=== PATIENT | male | born 1930 | race Caucasian/White ===

== ENCOUNTER 2016-08-17 17:26 | Emergency (ER) | payer MEDICARE, BC ==
--- NOTE | ~2016-08-17 | CR72 ---
[facility] A Service of [facility] RADIOLOGY TEXT RESULTS PATIENT: GUCCI WALTON LOCATION: [facility] : 30 UNIT #: [id number] AGE: [address]: Kavitha Richardson MD SEX: M ORDER DR: [id number] [place], [place] [address] [id number] E MR#: [id number] Acc #: [id number] NAME: GUCCI WALTON : 1930 SEX: M STUDY DATE/TIME: 08/17/2016 17:27 UNIT: [facility] ROOM: STUDY DESCRIPTION: CR Chest Single View Portable Attending Physician: Kavitha Richardson M.D. Ordering Physician: Kavitha Richardson M.D. Primary Care Physician: Yovana Batista A.P.R.N. MEDICAL IMAGING REPORT This report is preliminary unless electronic signature is present EXAM Portable chest. HISTORY Chest pain and short of breath over the past 4 days. COMPARISON STUDIES 05/24/2015 TECHNIQUE A single AP view of the chest was obtained. FINDINGS The heart and mediastinum are stable. Both lungs are clear, with normal vascular markings. No pleural fluid is seen. IMPRESSION Postop open heart. No active pulmonary disease. No evidence of congestive heart failure. Dictated by... Jose Powers M.D. THIS IS AN ELECTRONICALLY VERIFIED REPORT Jose Powers M.D. at 08/19/2016 11:02 AM CHRISTIAN/viktoria TD: 08/18/2016 11:08 JOB #: [id number] [facility] A Service of [facility] RADIOLOGY TEXT RESULTS PATIENT: GUCCI WALTON LOCATION: [facility] : 30 UNIT #: [id number] AGE: [address]: Kavitha Richardson MD SEX: M ORDER DR: MEDICAL IMAGING REPORT Page 1 of 1 COPY
--- NOTE | ~2016-08-17 | EKG ---
PATIENT: GUCCI WALTON UNIT #: [id number] Ventricular Rate: 70 BPM Atrial Rate: 312 BPM QRS Duration: 176 ms Q-T Interval: 438 ms QTC Calculation(Bezet): 473 ms Calculated R Austell: -74 degrees Calculated T Austell: 61 degrees Diagnosis Line: Suspect unspecified pacemaker failure Diagnosis Line: Ventricular-paced rhythm Diagnosis Line: Abnormal ECG Diagnosis Line: When compared with ECG of 16-APR-2015 19:54, Diagnosis Line: No significant change was found Diagnosis Line: Confirmed by GILL WHEATLEY MD ([id number]) on Diagnosis Line: 08/18/2016 8:02:26 AM INTERPRETING MD: CORRY EGAN
[2016-08-17 17:21] LABS: BASOPHIL% 0.4 % (0-2.5); EOSINOPHIL% 0.9 % (0.0-7.0); HEMATOCRIT 31.8 % (38.0-50.0); HEMOGLOBIN 10.5 gm/dL (13.0-16.0); LYMPHOCYTE# 0.9 X10e3 (1.0-3.5); LYMPHOCYTE% 18.9 % (17.0-45.0); MEAN CELL VOLUME 90.7 FL (83-96); MEAN CORPUSCULAR HEMOGLOBIN 29.9 PG (28-34); MEAN PLATELET VOLUME 7.8 FL (6.5-11.5); MONOCYTE# 0.5 X10e3 (0-1.0); MONOCYTE% 9.8 % (3.0-12.0); NEUTROPHIL# 3.4 X10e3 (1.5-7.1); PLATELET COUNT 166 X10e3 (140-420); RED BLOOD COUNT 3.51 X10e (3.90-5.60); RED CELL DISTRIBUTION WIDTH 14.8 % (11.0-15.5); WHITE BLOOD COUNT 4.8 X10e3 (4.0-10.5)
[2016-08-17 17:23] LABS: DIFF IND NO
[~2016-08-17 17:26] MED LIST: ALDACTONE PO; ALDACTONE25 MG PO; ALPRAZOLAM PO; ALPRAZOLAM0.25 MG PO; ASPIRIN PO; ASPIRIN81 M2 PO; ASPIRIN81 MG PO; CENTRUM SILVER PO; CERTAGEN PO; CIPRO PO; COREG12.5 MG PO; COUMADIN PO; COUMADIN3 MG PO; ENSURE COMPLET237 ML PO; FAMOTIDINE PO; FERROUS GLUCON324 MG PO; FISH OIL 1,0001 CA2 PO; FUROSEMIDE40 MG PO; KCL PO; KENALOG IN ORABA5 GM TOP; KROGER PHARMACY; LASIX PO; LISINOPRIL PO; LISINOPRIL10 MG PO; MACROBID100 MG PO; METAMUCIL; METOPROLOL SUC100 MG PO; METOPROLOL SUCC50 MG PO; MIRALAX17 GM PO; NIASPAN PO; OMEPRAZOLE40 M1 PO; OMEPRAZOLE40 MG; PHENERGAN W/CO120 ML PO; PROTONIX PO; TOPROL XL PO; TRILIPIX135 MG PO; WARFARIN PO; WARFARIN SODIUM10 MG PO; ZITHROMAX PO; ZITHROMAX1 G/PKT PO; ZOCOR PO; ZOCOR80 MG PO; [UNRECOGNIZED DRUG - OTHER] PO
[2016-08-17 17:34] LABS: POC - TROPONIN <0.05 ng/mL (<=0.05)
[2016-08-17 17:35] LABS: INR 3.2; PROTHROMBIN TIME (PATIENT) 35.2 SECONDS (9.6-11.5)
[2016-08-17 17:48] LABS: ALBUMIN SERUM 3.6 g/dL (3.5-5.0); ALKALINE PHOSPHATASE 48 U/L (32-92); ALT (SGPT) 12 U/L (10-40); AMYLASE 23 U/L (0-46); AST (SGOT) 18 U/L (10-42); BILIRUBIN, DIRECT 0.2 mg/dL (0.0-0.2); BILIRUBIN,INDIRECT 0.5 mg/dL (0.0-0.9); BILIRUBIN,TOTAL 0.7 mg/dL (0.2-2.0); BLOOD UREA NITROGEN 20 mg/dL (9-23); BUN/CREATININE RATIO 18.18; CARBON DIOXIDE 25 mmol/L (22-31); CHLORIDE 93 mmol/L (100-111); CREATININE SERUM 1.1 mg/dL (0.6-1.4); GLOM FILT RATE Estimated ABOVE60 mL/min (>60); GLUCOSE FASTING 85 mg/dL (70-110); LIPASE 18 U/L (22-51); POTASSIUM 4.4 mmol/L (3.5-5.1); PROTEIN TOTAL SERUM 6.2 g/dL (6.0-8.3); SODIUM 127 mmol/L (135-145)
[2016-08-17 19:21] LABS: URINE SOURCE CLEAN CATCH
[2016-08-17 19:29] LABS: URINE APPEARANCE CLEAR; URINE BILIRUBIN NEG (NEG); URINE BLOOD 1+ (NEG); URINE COLOR YELLOW; URINE GLUCOSE NEG (NEG); URINE KETONE NEG (NEG); URINE LEUKOCYTE ESTERASE NEG (NEG); URINE NITRATE NEG (NEG); URINE PH 6.5 (5-8); URINE PROTEIN 1+ (NEG); URINE SPECIFIC GRAVITY 1.019 (1.003-1.035)
[2016-08-17 19:35] LABS: U HYALINE CASTS AUWI 0-2 /[LPF]; URINE BACTERIA AUWI NEG (NEGATIVE); URINE SQUAMOUS EPITHELIAL CELL NONE SEEN /[HPF]; UWBCS1 AUWI 0-2 (0-5)
[2016-08-17 19:36] LABS: CULTURE INDICATED? NO
[2016-08-17 20:04] LABS: POC - CKMB <1.0 ng/mL (0.0-7.9); POC - TROPONIN <0.05 ng/mL (<=0.05)
== END 2016-08-17 20:00 | disposition home or self-care (01) ==
LOC: CED 17:26
PROVIDERS: Emergency Medicine
DX: R10.9 Unspecified abdominal pain (principal); E78.5 Hyperlipidemia, unspecified; I10 Essential (primary) hypertension; Z95.1 Presence of aortocoronary bypass graft; Z88.2 Allergy status to sulfonamides; Z88.5 Allergy status to narcotic agent; Z88.8 Allergy status to other drugs, medicaments and biological substances
CPT/HCPCS: 36415; 71010; 80048; 80076; 81003; 82150; 82553; 83690; 84484; 85025; 85610; 93005; 99283; 99284

== ENCOUNTER 2016-09-24 20:48 | Emergency (ER) | payer MEDICARE, BC ==
--- NOTE | ~2016-09-24 | CR72 ---
[facility] A Service of [facility] RADIOLOGY TEXT RESULTS PATIENT: GUCCI WALTON LOCATION: [facility] : 30 UNIT #: [id number] AGE: [address]: Glenroy Mccalin MD SEX: M ORDER DR: [id number] [facility] [address] [place], [place] [address] [id number] E MR#: [id number] Acc #: [id number] NAME: GUCCI WALTON : 1930 SEX: M STUDY DATE/TIME: 09/24/2016 21:19 UNIT: [facility] ROOM: STUDY DESCRIPTION: CR Chest Single View Portable Attending Physician: Glenroy Mcclain M.D. Ordering Physician: Glenroy Mcclain M.D. Primary Care Physician: Yovana Batista A.P.R.N. MEDICAL IMAGING REPORT This report is preliminary unless electronic signature is present EXAM Portable chest x-ray, 09/24/2016 HISTORY Dizziness. Short of air. Began today. FINDINGS AP radiographs of the chest are presented. Comparison 08/17/2016. Cardiac pacemaker unchanged. Stable mild cardiac enlargement. Status post median sternotomy CABG and cardiac valve repair. The lungs are well inflated. Ill-defined increased peribronchial markings in the bilateral guv-[id number] lung zones with some patchy and linear densities in these regions as well, left greater than right. Underlying pulmonary vasculature is within normal limits. There is no compelling evidence of edema. I would favor that the findings represent mild to moderate bronchitis/pneumonitis. Short-interval followup to confirm resolution is recommended. There is no dense airspace disease. Trace left pleural effusion or pleural thickening. Appearance unchanged. No pneumothorax. No suspicious nodule. Densely calcified granuloma right upper lobe unchanged. Dictated by... Dale Jamil M.D. THIS IS AN ELECTRONICALLY VERIFIED REPORT Dale Jamil M.D. at 09/25/2016 9:31 PM Shirin TD: 09/24/2016 23:24 JOB #: [id number] [facility] A Service of [facility] RADIOLOGY TEXT RESULTS PATIENT: GUCCI WALTON LOCATION: [facility] #: [id number] : 30 UNIT #: [id number] AGE: [address]: Glenroy Mcclain MD SEX: M ORDER DR: MEDICAL IMAGING REPORT Page 1 of 1 COPY
--- NOTE | ~2016-09-24 | EKG ---
PATIENT: GUCCI WALTON UNIT #: [id number] Ventricular Rate: 70 BPM Atrial Rate: 73 BPM QRS Duration: 174 ms Q-T Interval: 450 ms QTC Calculation(Bezet): 486 ms Calculated R Hollis: -69 degrees Calculated T Hollis: 57 degrees Diagnosis Line: Ventricular-paced rhythm Diagnosis Line: Abnormal ECG Diagnosis Line: When compared with ECG of 17-AUG-2016 17:00, Diagnosis Line: No significant change was found Diagnosis Line: Confirmed by GERI CALI MD ([id number]) on Diagnosis Line: 09/26/2016 10:55:04 PM INTERPRETING MD: NICOLE
--- NOTE | ~2016-09-24 | CT71 ---
[facility] A Service of [facility] RADIOLOGY TEXT RESULTS PATIENT: GUCCI WALTON LOCATION: [facility] : 30 UNIT #: [id number] AGE: [address]: Glenroy Mcclain MD SEX: M ORDER DR: [id number] [facility] [address] [place], [place] [address] [id number] E MR#: [id number] Acc #: [id number] NAME: GUCCI WALTON : 1930 SEX: M STUDY DATE/TIME: 09/24/2016 21:51 UNIT: [facility] ROOM: STUDY DESCRIPTION: CT Head Wo Contrast Attending Physician: Glenroy Mcclain M.D. Ordering Physician: Glenroy Mcclain M.D. Primary Care Physician: Yovana Batista A.P.R.N. MEDICAL IMAGING REPORT This report is preliminary unless electronic signature is present EXAM Head CT without HISTORY Dizziness today, new onset. History of hypertension, congestive heart failure, and kidney stones. TECHNIQUE Routine noncontrast head CT is reviewed. This CT exam was performed with one or more of the following radiation dose reduction techniques: automatic exposure control, adjustment of mA and/or kV according to patient size, and iterative reconstruction. COMPARISON STUDIES 03/26/2015. FINDINGS There is a displaced calvarial fracture. Mild paranasal sinus mucosal thickening. Large mucous retention cyst probably within the right maxillary sinus. Smaller mucous retention cysts or polyps in the left maxillary antrum. The mastoid air cells are clear. Prominent atherosclerotic vascular calcifications at the base of the brain. There is generalized atrophy. There is no extraaxial fluid collection. There is no evidence for acute intracranial hemorrhage. Mild periventricular white matter low attenuation is nonspecific but probably due to small vessel disease. No intracranial mass effect. The basilar cisterns are patent. Nothing at this time to suggest an acute cortical infarct but if there is clinical concern for acute CVA, follow-up imaging is recommended, preferably with MRI if the patient is a candidate. Patient has had cataract surgery bilaterally. [facility] A Service of [facility] RADIOLOGY TEXT RESULTS PATIENT: GUCCI WALTON [id number] : 30 UNIT #: [id number] AGE: [address]: Glenroy Mcclain MD SEX: M ORDER DR: IMPRESSION 1. No acute intracranial abnormality is appreciated but if there is clinical concern for acute CVA, follow-up imaging is recommended, preferably with MRI if the patient is a candidate. 2. Atrophy and probable mild sequela of small vessel disease. Extensive vascular calcifications base of the brain. Mild paranasal sinus disease but no air-fluid level in the visualized paranasal sinuses. Dictated by... Charleen Huntley M.D. THIS IS AN ELECTRONICALLY VERIFIED REPORT Charleen Huntley M.D. at 09/25/2016 10:22 AM NURYS/kike TD: 09/24/2016 23:27 JOB #: [id number] MEDICAL IMAGING REPORT Page 1 of 1 COPY
[2016-09-24 21:23] LABS: BASOPHIL% 0.6 % (0-2.5); DIFF IND NO; EOSINOPHIL# 0.1 X10e3 (0-0.7); EOSINOPHIL% 2.5 % (0.0-7.0); LYMPHOCYTE# 0.9 X10e3 (1.0-3.5); LYMPHOCYTE% 17.7 % (17.0-45.0); MEAN CELL VOLUME 92.4 FL (83-96); MEAN CORPUSCULAR HEMOGLOBIN 30.8 PG (28-34); MEAN CORPUSCULAR HGB CONC 33.4 g/dL (30-36); MEAN PLATELET VOLUME 7.7 FL (6.5-11.5); MONOCYTE# 0.5 X10e3 (0-1.0); MONOCYTE% 10.8 % (3.0-12.0); NEUTROPHIL# 3.5 X10e3 (1.5-7.1); NEUTROPHIL% 68.4 % (40-75); PLATELET COUNT 163 X10e3 (140-420); RED BLOOD COUNT 2.92 X10e (3.90-5.60); RED CELL DISTRIBUTION WIDTH 14.2 % (11.0-15.5); WHITE BLOOD COUNT 5.1 X10e3 (4.0-10.5)
[2016-09-24 21:30] LABS: INR 2.4; PROTHROMBIN TIME (PATIENT) 26.2 SECONDS (9.6-11.5)
[2016-09-24 21:39] LABS: BUN/CREATININE RATIO 21.81; CALCIUM SERUM 8.7 mg/dL (8.4-10.2); CREATININE SERUM 1.1 mg/dL (0.6-1.4); GLOM FILT RATE Estimated 60.5 mL/min (>60); POTASSIUM 4.6 mmol/L (3.5-5.1)
[2016-09-24 21:55] LABS: URINE SOURCE CLEAN CATCH
[2016-09-24 22:02] LABS: URINE BILIRUBIN NEG (NEG); URINE BLOOD TRACE (NEG); URINE COLOR YELLOW; URINE GLUCOSE NEG (NEG); URINE KETONE NEG (NEG); URINE LEUKOCYTE ESTERASE NEG (NEG); URINE NITRATE NEG (NEG); URINE PROTEIN NEG (NEG); URINE SPECIFIC GRAVITY 1.018 (1.003-1.035)
[2016-09-24 22:05] LABS: URINE BACTERIA AUWI NEG (NEGATIVE); URINE SQUAMOUS EPITHELIAL CELL NONE SEEN /[HPF]; UWBCS1 AUWI 0-2 (0-5)
[2016-09-24 22:07] LABS: CULTURE INDICATED? NO; URINE APPEARANCE CLEAR
== END 2016-09-24 23:40 | disposition home or self-care (01) ==
LOC: CED 20:48
PROVIDERS: Emergency Medicine
DX: R42 Dizziness and giddiness (principal); I10 Essential (primary) hypertension; Z95.0 Presence of cardiac pacemaker; Z79.01 Long term (current) use of anticoagulants; Z79.82 Long term (current) use of aspirin; Z79.899 Other long term (current) drug therapy; Z88.2 Allergy status to sulfonamides; Z88.5 Allergy status to narcotic agent; Z88.8 Allergy status to other drugs, medicaments and biological substances
CPT/HCPCS: 36415; 70450; 71010; 80048; 81003; 82947; 85025; 85610; 93005; 99284

== ENCOUNTER 2017-01-04 15:13 | Emergency (ER) | payer MEDICARE, BC ==
[~2017-01-04] VITALS: Ht 182.9 cm; Wt 74.8 kg
[2017-01-04] MEDS ORDERED: COUMADIN3 MG PO (15:46)
[2017-01-04] MEDS ORDERED: COREG6.25 M1 PO (15:47)
[2017-01-04] MEDS ORDERED: HYDROXYZINE HCL25 M1 PO (15:54)
[2017-01-04] MEDS ORDERED: SYNTHROID25 MCG PO (15:54)
== END 2017-01-04 15:50 | disposition home or self-care (01) ==
LOC: CFTX 15:13 → CED 15:13 → CFTX 15:47
DX: J02.9 Acute pharyngitis, unspecified (principal); I11.0 Hypertensive heart disease with heart failure; I50.9 Heart failure, unspecified; Z88.2 Allergy status to sulfonamides; Z88.5 Allergy status to narcotic agent; Z79.899 Other long term (current) drug therapy; Z79.82 Long term (current) use of aspirin
CPT/HCPCS: 87651; 99283

== ENCOUNTER 2017-01-17 12:02 | Inpatient (IN) | payer MEDICARE, BC ==
[~2017-01-17] VITALS: Ht 185.4 cm; Wt 71.6 kg
--- NOTE | ~2017-01-17 | CT114 ---
[facility] A Service of [facility] RADIOLOGY TEXT RESULTS PATIENT: GUCCI WALTON LOCATION: [facility] 551-01 : 30 UNIT #: [id number] AGE: [address]: Elizabeth Ovalles MD SEX: M ORDER DR: [id number] [facility] [address] [place], [place] [address] [id number] I MR#: [id number] Acc #: [id number] NAME: GUCCI WALTON : 1930 SEX: M STUDY DATE/TIME: 01/18/2017 8:21 UNIT: [facility] ROOM: [facility] STUDY DESCRIPTION: CT Soft Tissue Neck W Cont Attending Physician: Elizabeth Ovalles M.D. Ordering Physician: Jean Londono M.D. Primary Care Physician: Patrizia King MEDICAL IMAGING REPORT This report is preliminary unless electronic signature is present EXAM Soft tissue neck CT with contrast, 01/18/2017 PROCEDURE Axial contrast enhanced soft tissue neck CT with multiplanar reformats. This CT exam was performed with one or more of the following radiation dose reduction techniques: automatic exposure control, adjustment of mA and/or kV according to patient size, and iterative reconstruction. HISTORY Short of air and sore throat for 2 weeks. FINDINGS There is no cervical soft tissue mass, suspicious adenopathy, inflammatory change or abnormal fluid collection. The study is motion degraded. There is plaque at the carotid bifurcations without compelling evidence of substantial stenosis but no estimate of stenosis by NASCET criteria can be made from this exam. The upper mediastinum is unremarkable. The lung apices are normal. There is spinal degenerative change but no acute bony abnormality. IMPRESSION 1. No acute abnormality. No mass or inflammatory change or abnormal fluid collection. No suspicious adenopathy. There is spinal degenerative change but no acute bony abnormality. 2. There is plaque at the carotid bifurcations, without gross evidence of substantial stenosis but the study is not designed for identification of carotid stenosis. No estimate of stenosis by NASCET criteria can be made. Dictated by... [facility] A Service [facility] RADIOLOGY TEXT RESULTS PATIENT: GUCCI WALTON LOCATION: [facility] : 30 UNIT #: [id number] AGE: [address]: Elizabeth Ovalles MD SEX: M ORDER DR: Cuba Shi M.D. THIS IS AN ELECTRONICALLY VERIFIED REPORT Cuba Shi M.D. at 01/22/2017 5:02 PM MARCELL/maida TD: 01/18/2017 12:20 JOB #: [id number] MEDICAL IMAGING REPORT Page 1 of 1 COPY
--- NOTE | ~2017-01-17 | CO ---
Unit #: [id number] #: [id number] Patient: GUCCI WALTON [id number] [place], [place] [address] [id number] I MR#: [id number] NAME: GUCCI WALTON ROOM: 551 Age: 86 Sex: M Admission Date: 01/17/2017 : 1930 Attending Physician: Elizabeth Ovalles M.D. Primary Care Physician: Patrizia King Consultation Date: 01/17/2017 CONSULTATION REPORT REASON FOR CONSULTATION Hyponatremia. HISTORY OF PRESENT ILLNESS Mr. Ann is an 86-year-old elderly male with failure to thrive at home who came in complaining of continuous burning in his throat and also burning "on his insides." The patient has been evaluated by ENT, Dr. Ann for the sore throat without any clear etiology. He mentioned that he did drop a scope and did see some redness, but not much else. There is apparently a scan of his neck scheduled for this coming week. He does have some family present but states that the patient lives on his own and has not been doing well for some time. He has been having some trouble with weakness and walking. They are unsure about his p.o. intake. He has lost about 20 pounds over the past six months or so. Upon further questioning, he denies any vomiting or diarrhea to me. No gross hematuria. No chest discomfort or shortness of breath. No swelling problems. No rashes or itching. He does not take any NSAIDs that I am aware of. PAST MEDICAL HISTORY Significant for hypertension; hyperlipidemia; coronary artery disease, followed by Cardiology; valvular heart disease, status post valve replacement with Coumadin use; congestive heart failure, unknown type. PAST SURGICAL HISTORY He has had valve replacement, hernia repair, cholecystectomy, EGD, and either an AICD or pacer is not clear. MEDICATIONS Home medications according to the ER sheet are as follows: Clindamycin, hemorrhoid cream, B12, meclizine, dicyclomine, amitriptyline, magnesium oxide, riboflavin, carvedilol, simvastatin, omeprazole, lisinopril, MiraLAX, aspirin, warfarin, hydroxyzine, levothyroxine, ferrous sulfate, and Ensure. ALLERGIES He has coded allergies to sulfa, morphine, and epinephrine. FAMILY HISTORY Significant for heart disease. No family history of kidney problem. SOCIAL HISTORY The patient does live alone, but he does have some extended family in the ER that looked in on him. He smoked many years ago. No alcohol or drug Unit #: [id number] #: [id number] Patient: GUCCI WALTON. REVIEW OF SYSTEMS A complete 12-point review of systems was completed with the above findings. In addition, he has not complained of any headache or dizziness. No nosebleeds. No earache. No hemoptysis. No bright red blood per rectum or melena. No flank pain. No fevers. No chills. No night sweats or hot flashes. No intolerance to heat or cold. Again, he has had weight loss. No joint pain or swelling. Unless otherwise indicated, the review of systems was negative. PHYSICAL EXAMINATION VITAL SIGNS: The patient is afebrile. Pulse 77, respiratory rate 16, and blood pressure 166/74. GENERAL: This is a pleasant 86-year-old white male, who is alert and in no acute distress. HEENT: Head is atraumatic and normocephalic. Eyes show pink conjunctivae with no scleral icterus. No nasal drainage or nosebleed. Oropharynx is moist. No thrush. NECK: Shows no rigidity. HEART: Paced and regular with murmur present. No gallop or rub appreciated. LUNGS: Slightly diminished with no wheezing, no rhonchi. Breathing is nonlabored. ABDOMEN: Soft with old surgical scars present. There is a ventral hernia present. Bowel sounds are present. EXTREMITIES: No lower extremity cyanosis or edema. SKIN: Dry with no rashes. MUSCULOSKELETAL: No CVA tenderness to palpation. No joint effusions noted. NEUROLOGICAL: Cranial nerves are grossly intact with generalized weakness noted. PSYCHIATRIC: Mood and affect appear normal. DIAGNOSTIC STUDIES LABORATORY RESULTS: Urine osmolality was 208. Urinalysis; specific gravity was 1.007, trace protein, 1+ blood, and 10 to 25 red blood cells per high-powered field with no bacteria. TSH was normal at 2.14. Chest x-ray showed nothing acute. BNP was 107. Admission sodium 122, potassium 4.2, chloride 89, bicarb 27, glucose 116, BUN 13, creatinine 0.9. Rest of the CMP was unremarkable. INR 1.7. CBC; white count 5, hemoglobin 10.5, platelet count normal. Review of old labs showed that he was discharged back in 12/2014 with a sodium level of 134 after presenting at that time with a sodium of 117, improved with fluids per the discharge summary. Labs intervening between then and now do show chronic readings between 127 and 130 over the last few years. Uric acid level in 12/2014 was normal at 5.8. Serum osmolality at that time was 247. Again, thyroid function tests have been normal. Previous urine osmolalities in 2015 were 222 and 316 respectively with a urine sodium of 65. ASSESSMENT AND PLAN 1. Hyponatremia. Workup has been ordered by Dr. Galloway. I certainly have to be concerned with his questionable p.o. status with living alone and with his sore throat issue. He improved with fluids previously and saline has been ordered. I do note that he is on amitriptyline at home, which can certainly cause hyponatremia and this will need to be discontinued. His thyroid function tests are normal. Rest of his workup has been ordered by the by Dr. Galloway. Certainly with his low specific Unit #: [id number] #: [id number] Patient: ISABELLE,GUCCI gravity on his urine, he does appear to have the ability to dilute his urine, so he should correct as he did previously. With his sore throat and recurrent hyponatremia, I will go ahead and do scans of his neck, chest, and abdomen for completeness sake especially considering his recent weight loss. 2. Hypertension. Home medications will be renewed. 3. Microscopic hematuria. This is occurring in the setting of weight loss. We will check a urine culture as well as CT scan of his abdomen and pelvis. I will ask Urology to see. 4. Sore throat. He apparently had a CT scan that was supposed to be done this coming week and we will go in order here. ENT had been following. 5. Valvular heart disease with replacement on Coumadin. 6. History of pacer versus automatic implantable cardioverter-defibrillator, looks stable cardiovascular grimm. 7. 20 plus pound weight loss with scans order. I would like to thank Dr. Galloway for this consultation and the opportunity to participate in evaluation and care of Mr. Ann. Dictated by... Kaleb Ambrosio Jr., M.D. JOLIE/giuseppe TD: 01/18/2017 14:15 JOB #: [id number] CONSULTATION REPORT Page 1 of 1 X Kaleb Ambrosio MD CONSULTATION REPORT
--- NOTE | ~2017-01-17 | CT55 ---
[facility] A Service of [facility] RADIOLOGY TEXT RESULTS PATIENT: SD WALTON LOCATION: [facility] 55- : 30 UNIT #: [id number] AGE: [address]: Elizabeth Ovalles MD SEX: M ORDER DR: [id number] [facility] [address] [place], [place] [address] [id number] I MR#: [id number] Acc #: [id number] NAME: SD WALTON : 1930 SEX: M STUDY DATE/TIME: 01/18/2017 8:21 UNIT: [facility] ROOM: [facility] STUDY DESCRIPTION: CT Chest W Con Attending Physician: Elizabeth Ovalles M.D. Ordering Physician: Jean Londono M.D. Primary Care Physician: Patrizia King MEDICAL IMAGING REPORT This report is preliminary unless electronic signature is present EXAM CT scan chest with contrast INDICATION Sore throat, shortness of air and chest pain, weight loss and hematuria for 2 weeks. COMPARISON None TECHNIQUE Axial 3.0 mm images were obtained through the chest without IV contrast. This CT exam was performed with one or more of the following radiation dose reduction techniques: automatic exposure control, adjustment of mA and/or kV according to patient size, and iterative reconstruction. FINDINGS There is a calcified granuloma in the right upper lobe. There is minimal right greater left basilar atelectasis. The thyroid gland is normal. A pacemaker is present. There aorta is normal in size. There is no mediastinal or hilar adenopathy. The bones show sternotomy wires present. IMPRESSION 1. Minimal right greater than left basilar atelectasis. 2. No adenopathy or infiltrate is identified. 3. There is a pacemaker and sternotomy wires present. Dictated by... Sd Encinas M.D. THIS IS AN ELECTRONICALLY VERIFIED REPORT Sd Encinas M.D. at 01/18/2017 12:13 PM [facility] A Service [facility] RADIOLOGY TEXT RESULTS PATIENT: SD WALTON LOCATION: [facility] : 30 UNIT #: [id number] AGE: [address]: Elizabeth Ovalles MD SEX: M ORDER DR: Deshaun TD: 01/18/2017 11:38 JOB #: [id number] MEDICAL IMAGING REPORT Page 1 of 1 COPY
--- NOTE | ~2017-01-17 | DS ---
Unit #: [id number] #: [id number] Patient: GUCCI WALTON [id number] [address] [place], [place] [address] [id number] I MR#: [id number] NAME: GUCCI WALTON ROOM: 551 Age: 86 Sex: M Admission Date: 01/17/2017 : 1930 Discharge Date: 01/19/2017 Attending Physician: Elizabeth Ovalles M.D. Primary Care Physician: Patrizia King DISCHARGE SUMMARY REASON FOR ADMISSION Sore throat. HISTORY OF PRESENT ILLNESS/HOSPITAL COURSE The patient is a very pleasant 86-year-old male with underlying history of hypertension, hyperlipidemia, valvular heart disease on chronic anticoagulation, as well as, a prior history of diastolic dysfunction who presented to the emergency department with complaints of increased discomfort with swallowing. Initially, he stated that he had lost approximately 20 pounds over the past six months. He also was noted to have acute hyponatremia on day of admission with a sodium of 121. He was thus admitted secondary to above. He was initially placed on telemetry floor. Consultation was placed to nephrology services. Dr. Ambrosio and associates saw and evaluated patient. He was placed on appropriate medications. His sodium level has now increased to 127. After review and discussion with the patient and in consideration of his weight loss, a CT soft tissue neck, chest, as well as, abdomen and pelvis were ordered as per nephrology. His CT soft tissue neck was negative as was CT chest with contrast. 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 This prompted a vascular consultation with Dr. Trevin Samaniego. He stated that there was no acute intervention which was needed but outpatient followup was recommended and therefore, Dr. Samaniego recommends at time of discharge a two-week followup. In consideration of his weight loss and after review and discussion with the patient, he states that he felt as though he was eating an inappropriate diet and in fact his weight loss was intentional. He tried to eat more healthy, began losing weight, felt better. At this point in time, patient is currently clinically stable for discharge home. He did have an episode of hematuria while here and Dr. Murillo was consulted. He recommended outpatient cystoscopy after discharge home as well as the addition of Flomax at time of discharge. All plans have been reviewed and discussed with the patient in detail. He is well aware of the importance of followup with Dr. Samaniego as well as Dr. Murillo. I have recommended he followup with his primary care provider in 7-10 days to coordinate care. FINAL DISCHARGE DIAGNOSES 1. Hyponatremia on admission, likely secondary to increased fluid intake Unit #: [id number] #: [id number] Patient: GUCCI WALTON while at home. 2. Intentional weight loss, secondary to patient's perception of being overweight. 3. Sore throat, likely viral upper respiratory infection, now resolving. 4. Hypertension. 5. Hyperlipidemia. 6. Microscopic hematuria, outpatient followup. 7. Prior history of coronary artery disease. 8. Valvular heart disease on chronic anticoagulation. 9. Prior history of diastolic dysfunction. FINAL DISCHARGE MEDICATIONS 1. Flomax 0.4 mg p.o. daily. 2. Tylenol 650 mg p.o. q.6 p.r.n. 3. Mag-Ox 400 mg p.o. daily. 4. Coumadin 3 mg p.o. daily. 5. Vistaril 25 mg p.o. b.i.d. p.r.n. 6. Coreg 6.25 mg p.o. b.i.d. 7. Ensure t.i.d. with meals. 8. MiraLax daily. 9. Simvastatin 40 mg p.o. daily. 10. Zestril 10 mg p.o. b.i.d. 11. Ferrous gluconate 324 mg p.o. b.i.d. 12. Aspirin 81 mg p.o. daily. 13. Omeprazole 40 mg p.o. daily. 14. Synthroid 50 mcg p.o. daily. 15. Vitamin B12 at 1000 mcg p.o. daily. DISCHARGE CONDITION Stable. DISCHARGE DISPOSITION Home. Dictated by... Shakira Tan/kim TD: 01/21/2017 10:36 JOB #: [id number] DISCHARGE SUMMARY Page 1 of 1 X Elizabeth Ovalles MD X DISCHARGE SUMMARY
--- NOTE | ~2017-01-17 | CT3 ---
[facility] A Service of [facility] & [facility] RADIOLOGY TEXT RESULTS PATIENT: SD WALTON LOCATION: C5B 551-01 : 30 UNIT #: [id number] AGE: [address]: Elizabeth Ovalles MD SEX: M ORDER DR: [id number] [facility] [address] [place], [place] [address] [id number] I MR#: [id number] Acc #: [id number] NAME: SD WALTON : 1930 SEX: M STUDY DATE/TIME: 01/18/2017 8:21 UNIT: [facility] ROOM: [facility] STUDY DESCRIPTION: CT Abd and Pelv WWo Cont Attending Physician: Elizabeth Ovalles M.D. Ordering Physician: Jean Londono M.D. Primary Care Physician: Patrizia King Aprn MEDICAL IMAGING REPORT This report is preliminary unless electronic signature is present EXAM CT abdomen and pelvis with and without contrast. INDICATION Hematuria for 2 weeks. Weight loss. 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 COMPARISON 11/25/2016 TECHNIQUE Initially unenhanced images were obtained through the abdomen and pelvis through the abdomen. Then the patient was given 100 mL of Isovue-370 and arterial phase images and 90-second delayed images were obtained through the kidneys with 5-minute delayed images through the abdomen and pelvis. This CT exam was performed with one or more of the following radiation dose reduction techniques: automatic exposure control, adjustment of mA and/or kV according to patient size, and iterative reconstruction. FINDINGS The lungs are clear. There are multiple renal cyst including a large cyst with a single cyst with single septa in the left kidney measuring about 6.5 cm in diameter. Just above the left kidney and just below the spleen, there is a soft tissue density well-circumscribed lesion. It seems to be separate from the splen and the kidney, although it is abutting the upper pole of the kidney. 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 This is unchanged from 01/08/2015. This is just below what appears to be a large splenic artery aneurysm. That aneurysm is about 3.0 x 3.2 cm. it has a calcified posterior portion, but the anterior two-thirds is not calcified. It is slightly larger than in 2015 when it measured about 2.5 x 2.4 cm. There is contrast filling the center of this abnormality. The [facility] A Service of [facility] RADIOLOGY TEXT RESULTS PATIENT: SD WALTON LOCATION: C5B 551-01 : 30 UNIT #: [id number] AGE: [address]: Elizabeth Ovalles MD SEX: M ORDER DR: gallbladder has been removed. The liver, spleen, pancreas, and adrenal glands are otherwise normal. The abdominal aorta is normal in size. The bowel is normal although there is a small umbilical hernia that contains a loop of small intestine. There is no evidence of obstruction. This is unchanged from the prior study from 2015. Bladder is normal. The prostate gland is normal and the bones are unremarkable. IMPRESSION 1. There is an aneurysm in the splenic hilum that is almost certainly a splenic artery aneurysm, although it is difficult to clearly identify which portion of the splenic artery or branch is extending into this area. This does enhance centrally after contrast administration. It is enlarged as compared with 01/08/2015. It has gone from about 2.5 cm to about 3.2 cm and only about a third of the aneurysm is surrounded by dense calcification, the rest of it is not calcified. This would certainly suggest that it may have a risk of rupture, but it has been present for many years based on the old study. 2. Nonobstructing abdominal wall hernia near the umbilicus that contains small bowel and is unchanged from 2015. 3. Multiple renal cysts. 4. 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 This is unchanged from 2015. 5. There are no suspicious renal masses. Dictated by... Sd Encinas M.D. THIS IS AN ELECTRONICALLY VERIFIED REPORT Sd Encinas M.D. at 01/18/2017 1:43 PM WENDY/hebert TD: 01/18/2017 12:15 JOB #: [id number] MEDICAL IMAGING REPORT Page 1 of 1 COPY
--- NOTE | ~2017-01-17 | EKG ---
PATIENT: GUCCI WALTON UNIT #: [id number] Ventricular Rate: 70 BPM Atrial Rate: 375 BPM QRS Duration: 180 ms Q-T Interval: 458 ms QTC Calculation(Bezet): 494 ms Calculated R [place]: -55 degrees Calculated T [place]: 55 degrees Diagnosis Line: Diagnosis Line: Ventricular-paced rhythm Diagnosis Line: Abnormal ECG Diagnosis Line: When compared with ECG of 24-SEP-2016 21:13, Diagnosis Line: No significant change was found Diagnosis Line: Confirmed by MIGUEL OSCAR MD ([id number]) on 01/18/2017 Diagnosis Line: 5:54:27 PM INTERPRETING MD: CELESTINA EGAN
--- NOTE | ~2017-01-17 | HP ---
Unit #: [id number] #: [id number] Patient: GUCCI WALTON [id number] [place], [place] [address] [id number] I MR#: [id number] NAME: GUCCI WALTON ROOM: 76441 Age: 86 Sex: M Admission Date: 01/17/2017 : 1930 Attending Physician: Radha Galloway M.D. Primary Care Physician: Patrizia King HISTORY AND PHYSICAL CHIEF COMPLAINT Sore throat. HISTORY OF PRESENT ILLNESS The patient is an 86-year-old male with a past medical history of hypertension, hyperlipidemia, coronary artery disease, valvular heart disease, chronic anticoagulation, CHF who presented to the emergency department for evaluation of the above. The patient states that he has had a one month history of sore throat. He states that his primary care physician initially put him on amoxicillin for ten days and that did not help. He is currently seeing Dr. Ann of otolaryngology for further evaluation. He states that he is getting a "scan" on 01/19/2017 for further evaluation of the sore throat. He states that his appetite has continued to be okay. He has lost 20 pounds over the past six months. He denies any vomiting. No difficulty swallowing. No diarrhea. No fever. He reports an occasional cough, no chest pain, no difficulty breathing. In the emergency department chest x-ray was done and showed stable cardiac enlargement. Laboratory notable for sodium of 121. He is being admitted to [facility] for evaluation and further treatment. PAST MEDICAL HISTORY 1. Admission to [facility] 01/08/2015 for general weakness and hyponatremia. He was seen in consultation by nephrology. Per the discharge summary, hyponatremia was secondary to euvolemic versus hypovolemic hyponatremia from his diuretics. The patient's sodium was 117 on 01/08/2015 and was 134 on the day of discharge. 2. Hypertension. 3. Hyperlipidemia. 4. Coronary artery disease, followed by Dr. Healy. 5. Valvular heart disease, status post replacement. 6. Chronic anticoagulation with Coumadin. 7. Hypertension. 8. Congestive heart failure with unknown ejection fraction. PAST SURGICAL HISTORY 1. Valve replacement. 2. Hernia repair. 3. Cholecystectomy. 4. EGD. 5. AICD placement. Unit #: [id number] #: [id number] Patient: GUCCI WALTON SOCIAL HISTORY The patient lives alone. There is no tobacco or alcohol use. He typically walks without assistance. FAMILY HISTORY Notable for both his parents having "heart problems." ALLERGIES Sulfa, morphine, and epinephrine. HOME MEDICATIONS Clindamycin, TruBiotic, hemorrhoid cream, B12, meclizine, dicyclomine, amitriptyline, magnesium, riboflavin, carvedilol, simvastatin, omeprazole, lisinopril, MiraLAX, aspirin, warfarin, hydroxyzine, levothyroxine, iron, Ensure. Home medication will need to be reviewed and verified. REVIEW OF SYSTEMS A complete review of systems is negative except as indicated in the HPI. PHYSICAL EXAMINATION VITAL SIGNS: Temperature is 98.1, pulse 69, respiration 18, blood pressure 162/81. Oxygen saturation 96% on room air. GENERAL: The patient is a very pleasant male who is awake and alert, in no acute distress. HEENT: Head is atraumatic. Mucous membranes are moist. There is mild oropharyngeal erythema. The patient is noted to be hoarse. NECK: Supple trachea is midline. CARDIOVASCULAR: Regular rate and rhythm. LUNGS: Clear to auscultation bilaterally with no increased work of breathing. ABDOMEN: Soft, nontender with bowel sounds present in all four quadrants. EXTREMITIES: No tender with no pedal edema. NEUROLOGIC: The patient is awake and alert. He follows commands. PSYCH: Mood and affect are normal. The patient is cooperative. SKIN: Skin of examined areas is warm and dry. DIAGNOSTIC STUDIES CARDIOLOGY STUDIES: EKG shows paced rhythm with a rate of 70 BPM. IMAGING STUDIES: Chest x-ray shows stable cardiac enlargement. LABORATORY STUDIES: Troponin is less than 0.05. Complete blood count notable for a hemoglobin and hematocrit 10.5 and 30.8 respectively. INR is 1.7. Comprehensive metabolic panel notable for sodium of 122, chloride 89, glucose 116. BNP is 107. ASSESSMENT The patient is an 86-year-old male with: 1. Hyponatremia. The patient's sodium has been as low as 117 on 01/08/2015. It is 122 today. He appears to be euvolemic. I do not yet have his home medications. 2. General weakness. 3. Sore throat. The patient is being evaluated by Dr. Ann. 4. Hypertension. 5. Coronary artery disease, followed by Dr. Healy. 6. Valvular heart disease, status post replacement. 7. Chronic anticoagulation with Coumadin. INR is 1.7 today. Unit #: [id number] #: [id number] Patient: GUCCI WALTON 8. Congestive heart failure with unknown ejection fraction. 9. Weight loss. The patient reports a 20 pounds weight loss over the past six months. 10. Hyperlipidemia. PLAN 1. Admit to an intermediate level. 2. Healthy heart diet if passes bedside swallow. 3. Normal saline at 75 mL an hour. 4. Urine sodium and osmolality. 5. Serum osmolality. 6. BMP q.6 hours to follow up hyponatremia. 7. Urinalysis with culture and sensitivity. 8. Strict I's and O's. 9. Check TSH. 10. Consult Dr. Hopkins regarding hyponatremia. 11. PT and OT to evaluate and treat. 12. Bedrest. 13. Fall precautions. 14. Serial cardiac enzymes. 15. P.r.n. Tylenol. 16. Repeat labs in the morning including INR. 17. SCDs for DVT prophylaxis. 18. Additional workup and consultants based on above. 1. Dictated by Shakira Rich/blake TD: 01/17/2017 18:11 JOB #: [id number] HISTORY AND PHYSICAL Page 1 of 1 X Radha Galloway MD X HISTORY AND PHYSICAL
--- NOTE | ~2017-01-17 | CR72 ---
[facility] A Service of [facility] RADIOLOGY TEXT RESULTS PATIENT: GUCCI WALTON LOCATION: [place] [address] : 30 UNIT #: [id number] AGE: [address]: Elizabeth Ovalles MD SEX: M ORDER DR: [id number] [facility] [place], [place] [address] [id number] E MR#: [id number] #: [id number] NAME: GUCCI WALTON : 1930 SEX: M STUDY DATE/TIME: 01/17/2017 13:03 UNIT: [facility] ROOM: STUDY DESCRIPTION: CR Chest Single View Portable Attending Physician: Jean Londono M.D. Ordering Physician: Jean Londono M.D. Primary Care Physician: Patrizia King MEDICAL IMAGING REPORT This report is preliminary unless electronic signature is present EXAM Portable chest x-ray. HISTORY Dyspnea. Short of air. Dyspnea. Throat pain 3 days. TECHNIQUE AP radiograph of the chest is presented. COMPARISON 09/24/2016 FINDINGS Status post median sternotomy, CABG, cardiac valve repair, cardiac pacemaker placement. Pacemaker unchanged. Heart shows stable enlargement. Lungs are well-inflated. There is blunting of the left lateral costophrenic sulcus unchanged from prior studies and probably reflecting pleural thickening. There is no pneumothorax. There is no compelling evidence of acute infectious or inflammatory disease. Healed granulomatous disease stable. No suspicious nodule. Dictated by... Dale Jamil M.D. THIS IS AN ELECTRONICALLY VERIFIED REPORT Dale Jamil M.D. at 01/18/2017 9:31 PM ANGELY/toby TD: 01/17/2017 17:13 JOB #: [id number] [facility] A Service [facility] RADIOLOGY TEXT RESULTS PATIENT: GUCCI WALTON LOCATION: [place] [address] : 30 UNIT #: [id number] AGE: [address]: Elizabeth Ovalles MD SEX: M ORDER DR: MEDICAL IMAGING REPORT Page 1 of 1 COPY
--- NOTE | ~2017-01-17 | CO ---
Unit #: [id number] #: [id number] Patient: GUCCI WALTON [id number] [address] [address] [id number] I MR#: [id number] NAME: GUCCI WALTON ROOM: 551 Age: 86 Sex: M Admission Date: 01/17/2017 : 1930 Attending Physician: Elizabeth Ovalles M.D. Primary Care Physician: Patrizia King Consultation Date: 01/19/2017 CONSULTATION REPORT REASON FOR CONSULTATION Microscopic hematuria. HISTORY OF PRESENT ILLNESS This 86-year-old man who was admitted for weakness, weight loss, and sore throat. He was noted to have severe hyponatremia and is clinically improved with treatment. Microscopic hematuria of significance was noted. He denies ever gross hematuria or clinical history of kidney stones. He has no history of urinary infection. He saw Dr. Hicks years ago, but has not followed up because [place]. He was seen for BPH, but also told there was a stone in the left kidney. He feels that he is voiding well, but has developed nocturia just over the last few months. Several months ago, a medication was tried which he cannot recall, but no benefit. He gets up every 2 hours. He would like to have this treated. PAST MEDICAL HISTORY Congestive heart failure; aortic valve replacement, on Coumadin; hypertension, hyperlipidemia, hyponatremia. SOCIAL HISTORY Aortic valve replacement, AICD, bilateral inguinal herniorrhaphy, hydrocelectomy, cholecystectomy. MEDICATIONS Currently include Lipitor, Coumadin, vitamin B, magnesium oxide, aspirin 81, Protonix, Zestril, ferrous gluconate, Coreg, Synthroid, meclizine, MiraLAX, Bentyl, Preparation H, ferrous gluconate, Vistaril, Protonix. ALLERGIES Include sulfa, morphine, and epinephrine. FAMILY HISTORY Negative for prostate cancer. SOCIAL HISTORY Nonsmoker. REVIEW OF SYSTEMS Neuropathic pains improved with correction of sodium; sore throat, improved; weight loss 20 pounds over 6 months. PHYSICAL EXAMINATION Unit #: [id number] #: [id number] Patient: GUCCI WALTON GENERAL: The patient is a very pleasant, alert, and active 86-year-old man, alert and oriented x3. Normal affect and mood outgoing. HEENT: Unremarkable. VITAL SIGNS: Stable and afebrile. Temperature 98.1, pulse 56, blood pressure 134/85, respirations 20, height 6 feet 1 inch, weight 157 pounds. BMI 20. LUNGS: Clear. ABDOMEN: Flat, soft, loose. No masses, tenderness, hernias, or organomegaly appreciated. : Phallus normal, uncircumcised, normal glans and meatus. Testes and epididymides mildly atrophic, bilaterally descended. Digital exam; normal anus and sphincter tone. Prostate 35 g, firm, smooth, asymmetric nodularity right base. DIAGNOSTIC STUDIES LABORATORY RESULTS: Urinalysis; 10 to 25 rbc's, otherwise normal. BUN 13, creatinine 0.9; 18 and 1.0 after contrast; eGFR is 77.1 initially. Liver function tests are normal. INR 1.8. Hemoglobin 10.3, WBC 6.0, platelets 184. IMAGING STUDIES: CT scan of the abdomen and pelvis without and with IV contrast is urologically notable for enlarged bladder, mild BPH with 2+ elevation of floor of bladder by prostate, which is only moderately enlarged, left renal cysts impressive on the left, one containing a calcification, otherwise simple 3 cm splenic artery aneurysm noted, which is being addressed. Films personally reviewed. IMPRESSION 1. Microscopic hematuria associated with chronic anticoagulation only at this point. 2. Nodular prostate with new voiding symptoms. PLAN We will check PSA. Try the patient on tamsulosin and send a urine culture. We will schedule follow up with cystoscopic examination after discharge home. Thank you, Anthony for the consultation. Dictated by... Jose Murillo M.D. SEUN/giuseppe TD: 01/19/2017 14:10 JOB #: [id number] CC: Shakira Luna Jr, M.D. Unit #: [id number] #: [id number] Patient: GUCCI WALTON CONSULTATION REPORT Page 1 of 1 X Jose Murillo MD CONSULTATION REPORT
--- NOTE | ~2017-01-17 | CO ---
Unit #: [id number] #: [id number] Patient: GUCCI WALTON [id number] [place], [place] [address] [id number] I MR#: [id number] NAME: GUCCI WALTON ROOM: 551 Age: 86 Sex: M Admission Date: 01/17/2017 : 1930 Attending Physician: Elizabeth Ovalles M.D. Primary Care Physician: Patrizia King Consultation Date: 01/18/2017 CONSULTATION REPORT REASON FOR CONSULTATION Splenic artery aneurysm. CHIEF COMPLAINT Sore throat. HISTORY OF PRESENT ILLNESS This is an 86-year-old gentleman, who was admitted with sore throat and overall fatigue. He was noted on imaging to have a splenic artery aneurysm. The patient denies any previous knowledge of this aneurysm. He overall says he feels better from what he was admitted. He notes that he has been tolerating regular diet. Denies any abdominal pain, postprandial pain, flank pain, or back pain. He did not have any fever or chills. He knows that he is on Coumadin for atrial fibrillation. He also noted history of CABG with MVR with pig tissue. PAST MEDICAL HISTORY Includes hypertension, hyperlipidemia, coronary artery disease, chronic atrial fibrillation with Coumadin, CHF with unknown ejection fraction. PAST SURGICAL HISTORY Includes CABG and MVR in 2003, open cholecystectomy in 1949, bilateral inguinal hernia with mesh repair in the s, ex lap and small-bowel resection in 1949s, EGD, and AICD placement. SOCIAL HISTORY The patient lives alone. Denies any tobacco or alcohol use. He walks without assistance. FAMILY HISTORY Both parents have "the patient renae heart problems." He reports that his brother has an aneurysm, but unsure where. ALLERGIES Sulfa, morphine, and epinephrine. HOME MEDICATIONS Include clindamycin, TruBiotics, hemorrhoid cream, B12, meclizine, dicyclomine, amitriptyline, magnesium, riboflavin, carvedilol, simvastatin, omeprazole, lisinopril, MiraLax, aspirin, Coumadin, hydroxyzine, levothyroxine, iron, and Ensure. REVIEW OF SYSTEMS Unit #: [id number] #: [id number] Patient: GUCCI WALTON CONSTITUTIONAL: Denies any fevers or chills. ENT: Denies any ear pain or tinnitus. Positive for sore throat. RESPIRATIONS: Denies any shortness of breath or cough. CARDIOVASCULAR: Denies any chest pain or palpitations. GI: Denies any nausea, vomiting, or diarrhea. : Positive for hematuria. HEME: Denies any easy bruising. ENDOCRINE: Denies any excessive thirst or hunger. MUSCULOSKELETAL: Denies any neck pain or back pain. INTEGUMENTARY: Denies any rash or pruritus. PHYSICAL EXAMINATION VITAL SIGNS: Temperature is 97.4, heart rate 70, blood pressure is 107/60, respirations 20, and 100% on room air. CONSTITUTIONAL: Well-appearing. HEENT: Eyes, no scleral icterus. NECK: No JVD or carotid bruit. LYMPHATICS: No lymphadenopathy in the neck or groins. CARDIOVASCULAR: Irregularly irregular. Pulse exam; 2+ femoral pulses, 2+ radial pulses. RESPIRATIONS: Nonlabored respirations. GI: Soft, nontender, nondistended, no palpable mass. SKIN: No rashes or ulcerations. PSYCH: Normal mood and affect. DIAGNOSTIC STUDIES LABORATORY RESULTS: WBC 5.8, hematocrit 30.7, platelets 188. Sodium 126, potassium 3.8, chloride 94, CO2 of 20, BUN 13, creatinine 0.9, and glucose 95. IMAGING STUDIES: On 01/18/2017, CT scan of abdomen and pelvis with and without contrast "there is on my interpretation splenic artery aneurysm at the hilum measuring about 3.0 x 3.2 cm in size." Also has a nonobstructing abdominal wall hernia near the umbilicus with small bowel. He also has multiple renal cysts, accessory spleen. CT soft tissue of the neck is otherwise negative with some plaque at the carotid bifurcations without gross evidence of substantial stenosis. On 01/08/2015, CT of the abdomen and pelvis possibly demonstrates a splenic artery aneurysm. ASSESSMENT AND PLAN An 86-year-old male with splenic artery aneurysm, located at hilum, measuring roughly 3.0 x 3.2 cm in size. Based on the size of the splenic artery aneurysm, it does meet criteria for surgical intervention, given the risk of rupture. I talked to the patient about his options, which include nonintervention and continued watching. I did not recommend this approach given the size of the aneurysm. He also expressed the desire to have it repaired. His operative approaches are either coil embolization via an endovascular approach or open/laparoscopic splenectomy. Regarding the coil embolization approach, given the location that it is at the hilum, there is a lower chance of technical success, because of multiple back feeders into the aneurysm. There was also significant tortuosity of the splenic artery, which may be making technically challenging and/or difficult to access the aneurysm. Looking at the imaging, there does appear to be branch, as well, and therefore catheterization need to be cautioned and just blindly coil embolizing the splenic artery without selecting out the splenic artery aneurysm. I also talked to the patient Unit #: [id number] #: [id number] Patient: GUCCI WALTON about the possibility of splenic infarction. Based on the distribution of the splenic artery, I do not believe that he would be at risk for complete splenic infarction, though he might experience some flank pain or back pain and partial splenic infarction. He will likely require vaccinations for pneumococcus, meningitis, and haemophilus, to prevent overwhelming and post splenectomy infection. Discussed with the patient that the possibility of open versus laparoscopic approach, if coil embolization appears to be unsuccessful. Having said that, I think we should be able to achieve good technical assessment with this approach. He expressed agreement and want to try the coil embolization. I will see him in the office in about 1 to 2 weeks upon discharge from the hospital and we will go over our discussion that we had today, and schedule his splenic artery coil embolization. Dictated by... Shakira Guzmán TD: 01/19/2017 06:37 JOB #: [id number] CONSULTATION REPORT Page 1 of 1 X X CONSULTATION REPORT
[~2017-01-17 12:02] MED LIST changes: +COREG6.25 M1 PO; +HYDROXYZINE HCL25 M1 PO; +SYNTHROID25 MCG PO
[2017-01-17 13:18] LABS: BASOPHIL% 0.3 % (0-2.5); EOSINOPHIL% 0.9 % (0.0-7.0); HEMATOCRIT 30.8 % (38.0-50.0); HEMOGLOBIN 10.5 gm/dL (13.0-16.0); LYMPHOCYTE# 0.9 X10e3 (1.0-3.5); MEAN CELL VOLUME 87.9 FL (83-96); MEAN CORPUSCULAR HEMOGLOBIN 30.1 PG (28-34); MEAN CORPUSCULAR HGB CONC 34.2 g/dL (30-36); MEAN PLATELET VOLUME 6.9 FL (6.5-11.5); MONOCYTE# 0.5 X10e3 (0-1.0); MONOCYTE% 9.6 % (3.0-12.0); NEUTROPHIL# 3.9 X10e3 (1.5-7.1); NEUTROPHIL% 72.2 % (40-75); PLATELET COUNT 175 X10e3 (140-420); RED CELL DISTRIBUTION WIDTH 14.4 % (11.0-15.5); WHITE BLOOD COUNT 5.4 X10e3 (4.0-10.5)
[2017-01-17 13:22] LABS: POC - CKMB <1.0 ng/mL (0.0-7.9); POC - TROPONIN <0.05 ng/mL (<=0.05)
[2017-01-17 13:22] LABS: DIFF IND NO
[2017-01-17 13:29] LABS: INR 1.7; PROTHROMBIN TIME (PATIENT) 18.9 SECONDS (10.0-11.7)
[2017-01-17 13:39] LABS: ALBUMIN SERUM 3.7 g/dL (3.5-5.0); BILIRUBIN, DIRECT 0.2 mg/dL (0.0-0.2); BILIRUBIN,INDIRECT 0.5 mg/dL (0.0-0.9); BILIRUBIN,TOTAL 0.7 mg/dL (0.2-2.0); BUN/CREATININE RATIO 14.44; CREATININE SERUM 0.9 mg/dL (0.6-1.4); GLOM FILT RATE Estimated 77.1 mL/min (>60); POTASSIUM 4.2 mmol/L (3.5-5.1); PROTEIN TOTAL SERUM 6.3 g/dL (6.0-8.3)
[2017-01-17 18:16] LABS: URINE SOURCE CLEAN CATCH
[2017-01-17 18:31] LABS: URINE APPEARANCE CLEAR; URINE BILIRUBIN NEG (NEG); URINE BLOOD 1+ (NEG); URINE COLOR YELLOW; URINE GLUCOSE NEG (NEG); URINE KETONE NEG (NEG); URINE LEUKOCYTE ESTERASE NEG (NEG); URINE NITRATE NEG (NEG); URINE PH 7.5 (5-8); URINE PROTEIN TRACE (NEG); URINE SPECIFIC GRAVITY 1.007 (1.003-1.035); URINE UROBILINOGEN 0.2 MG/DL (NEG)
[2017-01-17 18:33] LABS: URINE BACTERIA AUWI NEG (NEGATIVE); URINE SQUAMOUS EPITHELIAL CELL NONE SEEN /[HPF]; UWBCS1 AUWI 0-2 (0-5)
[2017-01-17 18:38] LABS: CULTURE INDICATED? NO
[2017-01-17 20:21] LABS: BUN/CREATININE RATIO 13.33; CALCIUM SERUM 9.1 mg/dL (8.4-10.2); CREATININE SERUM 0.9 mg/dL (0.6-1.4); GLOM FILT RATE Estimated 77.1 mL/min (>60); POTASSIUM 3.7 mmol/L (3.5-5.1)
[2017-01-17] MEDS ORDERED: COREG6.25 MG PO (20:27)
[2017-01-17] MEDS ORDERED: MIRALAX17 GM PO (20:29)
[2017-01-17] MEDS ORDERED: LISINOPRIL PO (20:29)
[2017-01-17] MEDS ORDERED: OMEPRAZOLE40 M1 PO (20:29)
[2017-01-17] MEDS ORDERED: SIMVASTATIN80 MG PO (20:29)
[2017-01-17] MEDS ORDERED: ASPIRIN81 M2 PO (20:30)
[2017-01-17] MEDS ORDERED: WARFARIN SODIUM3 M1 PO (20:30)
[2017-01-17] MEDS ORDERED: HYDROXYZINE HCL25 M1 PO (20:31)
[2017-01-17] MEDS ORDERED: LEVOTHYROXINE50 MCG PO (20:31)
[2017-01-17] MEDS ORDERED: FERROUS SULFAT325 MG PO (20:32)
[2017-01-17] MEDS ORDERED: ENSURE LIQUID237 M2 PO (20:33)
[2017-01-17] MEDS ORDERED: HEMORRHOID CREAM TOP (20:34)
[2017-01-17] MEDS ORDERED: ANTIVERT PO (20:35)
[2017-01-17] MEDS ORDERED: VITAMIN B SL (20:35)
[2017-01-17] MEDS ORDERED: DICYCLOMINE HCL10 MG PO (20:35)
[2017-01-17] MEDS ORDERED: AMITRIPTYLINE H25 MG PO (20:36)
[2017-01-17] MEDS ORDERED: MAGNESIUM OXID500 M2 PO (20:36)
[2017-01-17] MEDS ORDERED: RIBOFLAVIN400 MG PO (20:37)
[2017-01-17 20:43] LABS: %MB 2.7 % (0.0-4.0); MB 1.7 ng/ml
[2017-01-18] MEDS ORDERED: MIRALAX17 GM PO (00:18)
[2017-01-18] MEDS ORDERED: VITAMIN B122500 MCG PO (00:22)
[2017-01-18 01:39] LABS: BASOPHIL% 0.5 % (0-2.5); EOSINOPHIL# 0.1 X10e3 (0-0.7); EOSINOPHIL% 1.7 % (0.0-7.0); HEMATOCRIT 30.7 % (38.0-50.0); HEMOGLOBIN 10.7 gm/dL (13.0-16.0); LYMPHOCYTE% 16.5 % (17.0-45.0); MEAN CELL VOLUME 87.3 FL (83-96); MEAN CORPUSCULAR HEMOGLOBIN 30.5 PG (28-34); MEAN PLATELET VOLUME 6.7 FL (6.5-11.5); MONOCYTE# 0.6 X10e3 (0-1.0); MONOCYTE% 11.1 % (3.0-12.0); NEUTROPHIL# 4.1 X10e3 (1.5-7.1); NEUTROPHIL% 70.2 % (40-75); PLATELET COUNT 188 X10e3 (140-420); RED BLOOD COUNT 3.52 X10e (3.90-5.60); RED CELL DISTRIBUTION WIDTH 14.5 % (11.0-15.5); WHITE BLOOD COUNT 5.8 X10e3 (4.0-10.5)
[2017-01-18 01:43] LABS: DIFF IND NO
[2017-01-18 02:08] LABS: ALBUMIN SERUM 3.8 g/dL (3.5-5.0); BUN/CREATININE RATIO 14.44; CALCIUM SERUM 9.3 mg/dL (8.4-10.2); CREATININE SERUM 0.9 mg/dL (0.6-1.4); GLOM FILT RATE Estimated 77.1 mL/min (>60); POTASSIUM 3.8 mmol/L (3.5-5.1); PROTEIN TOTAL SERUM 6.4 g/dL (6.0-8.3)
[2017-01-18 02:29] LABS: %MB 2.6 % (0.0-4.0); MB 1.7 ng/ml
[2017-01-18 10:45] LABS: INR 1.6; PROTHROMBIN TIME (PATIENT) 17.9 SECONDS (10.0-11.7)
[2017-01-19 05:24] LABS: HEMATOCRIT 29.7 % (38.0-50.0); HEMOGLOBIN 10.3 gm/dL (13.0-16.0); MEAN CELL VOLUME 87.7 FL (83-96); MEAN CORPUSCULAR HEMOGLOBIN 30.4 PG (28-34); MEAN CORPUSCULAR HGB CONC 34.6 g/dL (30-36); MEAN PLATELET VOLUME 7.4 FL (6.5-11.5); RED BLOOD COUNT 3.39 X10e (3.90-5.60); RED CELL DISTRIBUTION WIDTH 14.5 % (11.0-15.5)
[2017-01-19 06:28] LABS: CALCIUM SERUM 9.2 mg/dL (8.4-10.2); GLOM FILT RATE Estimated 67.9 mL/min (>60); POTASSIUM 4.3 mmol/L (3.5-5.1)
[2017-01-19 06:35] LABS: INR 1.8
[2017-01-19] MEDS ORDERED: FLOMAX0.4 M1 PO (11:19)
[2017-01-19] MEDS ORDERED: ACETAMINOPHEN650 M3 PO (11:22)
[2017-01-19] MEDS ORDERED: MAGNESIUM OXIDE PO (11:25)
[2017-01-19] MEDS ORDERED: MAG-OX 400400 M1 PO (11:37)
[2017-01-19] MEDS ORDERED: HEMORRHOIDAL OI57 G2 PR (11:44)
== END 2017-01-19 13:45 | disposition home or self-care (01) | DRG 641 ==
LOC: CED 12:02 → CEDOF 16:40 → CED 17:30 → CEDOF 17:30 → C5B 23:48 → CEDOF 23:48 → C5B 01-18 06:36
PROVIDERS: Emergency Medicine; Family Medicine
DX: E87.1 Hypo-osmolality and hyponatremia (principal); I11.0 Hypertensive heart disease with heart failure; I50.9 Heart failure, unspecified; I72.8 Aneurysm of other specified arteries; R53.1 Weakness; J02.9 Acute pharyngitis, unspecified; I25.10 Atherosclerotic heart disease of native coronary artery without angina pectoris; Z95.2 Presence of prosthetic heart valve; Z79.01 Long term (current) use of anticoagulants; R63.4 Abnormal weight loss; E78.5 Hyperlipidemia, unspecified; R62.7 Adult failure to thrive; Z90.49 Acquired absence of other specified parts of digestive tract; Z88.2 Allergy status to sulfonamides; R31.29 Other microscopic hematuria; Z68.22 Body mass index [BMI] 22.0-22.9, adult
CPT/HCPCS: 36415; 70491; 71010; 71260; 74178; 80048; 80053; 80076; 81003; 82550; 82553; 82947; 83880; 83930; 83935; 84300; 84443; 84484; 84550; 85025; 85027; 85610; 85730; 93005; 97161; 97166; 99285; G0103; G8978-GP; G8979-GP; G8980-GP; G8987-GO; G8988-GO; G8989-GO; Q9967

== ENCOUNTER 2017-02-05 09:11 | Emergency (ER) | payer MEDICARE, BC ==
[~2017-02-05] VITALS: Ht 182.9 cm; Wt 75.7 kg
[~2017-02-05 09:11] MED LIST changes: +ACETAMINOPHEN650 M3 PO; +AMITRIPTYLINE H25 MG PO; +ANTIVERT PO; +COREG6.25 MG PO; +DICYCLOMINE HCL10 MG PO; +ENSURE LIQUID237 M2 PO; +FERROUS SULFAT325 MG PO; +FLOMAX0.4 M1 PO; +HEMORRHOID CREAM TOP; +HEMORRHOIDAL OI57 G2 PR; +LEVOTHYROXINE50 MCG PO; +MAG-OX 400400 M1 PO; +MAGNESIUM OXID500 M2 PO; +MAGNESIUM OXIDE PO; +RIBOFLAVIN400 MG PO; +SIMVASTATIN80 MG PO; +VITAMIN B SL; +VITAMIN B122500 MCG PO; +WARFARIN SODIUM3 M1 PO
[2017-02-05 09:41] LABS: URINE SOURCE CLEAN CATCH
[2017-02-05 09:44] LABS: URINE APPEARANCE TURBID; URINE BLOOD 3+ (NEG); URINE COLOR DK YELLOW; URINE GLUCOSE NEG (NEG); URINE KETONE NEG (NEG); URINE LEUKOCYTE ESTERASE 3+ (NEG); URINE NITRATE POS (NEG); URINE PH 6.5 (5-8); URINE PROTEIN 2+ (NEG); URINE SPECIFIC GRAVITY 1.017 (1.003-1.035); URINE UROBILINOGEN 0.2 MG/DL (NEG)
[2017-02-05 09:46] LABS: CULTURE INDICATED? YES; URBCS1 AUWI INNUM /[HPF] (0-2); URINE BACTERIA AUWI 4+ (NEGATIVE); URINE SQUAMOUS EPITHELIAL CELL NONE SEEN /[HPF]; UWBCS1 AUWI INNUM (0-5)
[2017-02-05 09:52] LABS: URINE BILIRUBIN NEG (NEG)
== END 2017-02-05 10:20 | disposition home or self-care (01) ==
LOC: CED 09:11
PROVIDERS: Emergency Medicine
DX: N30.00 Acute cystitis without hematuria (principal); I11.0 Hypertensive heart disease with heart failure; I50.9 Heart failure, unspecified; Z90.49 Acquired absence of other specified parts of digestive tract; Z87.442 Personal history of urinary calculi; Z95.1 Presence of aortocoronary bypass graft; Z88.2 Allergy status to sulfonamides; Z88.5 Allergy status to narcotic agent; Z88.8 Allergy status to other drugs, medicaments and biological substances
CPT/HCPCS: 81003; 87086; 87088; 87186; 96372; 99283; J0696

== ENCOUNTER 2017-02-16 10:43 | Emergency (ER) | payer MEDICARE, BC ==
[~2017-02-16] VITALS: Ht 182.9 cm; Wt 75.7 kg
--- NOTE | ~2017-02-16 | EKG ---
PATIENT: GUCCI WALTON UNIT #: [id number] Ventricular Rate: 70 BPM Atrial Rate: 74 BPM QRS Duration: 176 ms Q-T Interval: 452 ms QTC Calculation(Bezet): 488 ms Calculated R [place]: -56 degrees Calculated T [place]: 75 degrees Diagnosis Line: Ventricular-paced rhythm Diagnosis Line: Abnormal ECG Diagnosis Line: When compared with ECG of 17-JAN-2017 12:49, Diagnosis Line: No significant change was found Diagnosis Line: Confirmed by JAQUI ALBERT MD ([id number]) on Diagnosis Line: 02/17/2017 12:34:09 PM INTERPRETING MD: ROOSEVELT EGAN
--- NOTE | ~2017-02-16 | CR72 ---
[facility] A Service of [facility] & [facility] RADIOLOGY TEXT RESULTS PATIENT: GUCCI WALTON LOCATION: [facility] : 30 UNIT #: [id number] AGE: [address]: Krishna Huang MD SEX: M ORDER DR: [id number] [facility] [address] [place], [place] [address] [id number] E MR#: [id number] Acc #: [id number] NAME: GUCCI WALTON : 1930 SEX: M STUDY DATE/TIME: 02/16/2017 13:41 UNIT: [facility] ROOM: STUDY DESCRIPTION: CR Chest Single View Portable Attending Physician: Krishna Huang M.D. Ordering Physician: Krishna Huang M.D. Primary Care Physician: Patrizia King MEDICAL IMAGING REPORT This report is preliminary unless electronic signature is present EXAM Portable chest 02/16. INDICATIONS Shortness of air, weakness today. TECHNIQUE AP portable chest. COMPARISON Compared with 01/17/17. TECHNIQUE Cardiomegaly stable status post sternotomy and valve repair. Lungs remain clear except for granulomatous calcification. No pneumothorax. IMPRESSION No active disease. Dictated by... Jose Banuelos Jr., M.D. THIS IS AN ELECTRONICALLY VERIFIED REPORT Jose Banuelos Jr., M.D. at 02/17/2017 6:37 AM PORTER/rené TD: 02/16/2017 15:43 JOB #: [id number] MEDICAL IMAGING REPORT Page 1 of 1 COPY
[2017-02-16 12:58] LABS: URINE SOURCE CLEAN CATCH
[2017-02-16 13:14] LABS: URINE APPEARANCE CLEAR; URINE BILIRUBIN NEG (NEG); URINE BLOOD 1+ (NEG); URINE COLOR DK YELLOW; URINE GLUCOSE NEG (NEG); URINE KETONE NEG (NEG); URINE LEUKOCYTE ESTERASE NEG (NEG); URINE NITRATE NEG (NEG); URINE PROTEIN 1+ (NEG); URINE SPECIFIC GRAVITY 1.016 (1.003-1.035); URINE UROBILINOGEN 0.2 MG/DL (NEG)
[2017-02-16 13:18] LABS: U HYALINE CASTS AUWI 0-2 /[LPF]; URINE BACTERIA AUWI NEG (NEGATIVE); URINE SQUAMOUS EPITHELIAL CELL NONE SEEN /[HPF]; UWBCS1 AUWI 0-2 (0-5)
[2017-02-16 13:22] LABS: CULTURE INDICATED? NO
[2017-02-16 13:24] LABS: BASOPHIL% 0.4 % (0-2.5); EOSINOPHIL% 0.8 % (0.0-7.0); HEMATOCRIT 30.9 % (38.0-50.0); HEMOGLOBIN 10.6 gm/dL (13.0-16.0); LYMPHOCYTE% 17.7 % (17.0-45.0); MEAN CELL VOLUME 88.4 FL (83-96); MEAN CORPUSCULAR HEMOGLOBIN 30.4 PG (28-34); MEAN CORPUSCULAR HGB CONC 34.4 g/dL (30-36); MEAN PLATELET VOLUME 6.6 FL (6.5-11.5); MONOCYTE# 0.5 X10e3 (0-1.0); MONOCYTE% 9.4 % (3.0-12.0); NEUTROPHIL# 4.2 X10e3 (1.5-7.1); NEUTROPHIL% 71.7 % (40-75); PLATELET COUNT 231 X10e3 (140-420); RED CELL DISTRIBUTION WIDTH 14.8 % (11.0-15.5); WHITE BLOOD COUNT 5.8 X10e3 (4.0-10.5)
[2017-02-16 13:37] LABS: DIFF IND NO
[2017-02-16 13:45] LABS: ALBUMIN SERUM 3.7 g/dL (3.5-5.0); BILIRUBIN, DIRECT 0.1 mg/dL (0.0-0.2); BILIRUBIN,INDIRECT 0.3 mg/dL (0.0-0.9); BILIRUBIN,TOTAL 0.4 mg/dL (0.2-2.0); BUN/CREATININE RATIO 18.75; CALCIUM SERUM 9.2 mg/dL (8.4-10.2); CREATININE SERUM 0.8 mg/dL (0.6-1.4); GLOM FILT RATE Estimated 80.9 mL/min (>60); POTASSIUM 4.9 mmol/L (3.5-5.1); PROTEIN TOTAL SERUM 6.3 g/dL (6.0-8.3)
[2017-02-16 14:06] LABS: POC - CKMB <1.0 ng/mL (0.0-7.9); POC - TROPONIN <0.05 ng/mL (<=0.05)
[2017-02-16 16:48] LABS: POC - TROPONIN <0.05 ng/mL (<=0.05)
== END 2017-02-16 17:00 | disposition home or self-care (01) ==
LOC: CED 10:43
PROVIDERS: Emergency Medicine
DX: R53.1 Weakness (principal); I11.0 Hypertensive heart disease with heart failure; I50.9 Heart failure, unspecified; Z88.2 Allergy status to sulfonamides; Z88.5 Allergy status to narcotic agent; Z88.8 Allergy status to other drugs, medicaments and biological substances
CPT/HCPCS: 71010; 80048; 80076; 81003; 82553; 83880; 84484; 85025; 93005; 99285